=== PATIENT | female | born 1990 | race Caucasian/White ===

== ENCOUNTER 2017-01-06 09:12 | Emergency (ER) | payer OTHER ==
[~2017-01-06] VITALS: Ht 152.4 cm; Wt 54.0 kg
[2017-01-06 09:15] VITALS: Ht 152.4 cm; Wt 54.0 kg
[2017-01-06] MEDS ORDERED: IBUPROFEN 800 MG TAB PO ONE (10:00)
[2017-01-06] MEDS ORDERED: IBUP800T25 PO (11:16)
[2017-01-06 11:24] VITALS: BP 121/86; PULSE 74; RESP 14; TEMP 98.2
--- NOTE | 2017-01-06 17:18 | ERD ---
ER Documentation Chief Complaint Date/Time DATE: 01/06/17 TIME: 17:09 Chief Complaint Complains of left arm pain x 2 days HPI 26-year-old female complaining of left shoulder pain 2 days. Patient stated the pain was initially a dull ache yesterday morning, the pain has becoming increasingly worse. She sleeps on her left side. This morning upon awake the pain has become excruciating. She is having difficulty to move her left shoulder due to pain. Patient reports pain radiating down her arm when she tried to move her left shoulder and elbow. Denies any trauma. Patient stated that she does a lot of heavy lifting at work. ROS All systems reviewed and are negative except as per history of present illness. Medications Home Meds Active Scripts Ibuprofen* (Motrin*) 800 Mg Tab, 800 MG PO Q8 Y for PAIN AND OR ELEVATED TEMP, # 30 TAB Prov:JAIROKAYY Axel. SECURITY INTERN 01/06/17 Allergies Allergies: Coded Allergies: Latex, Natural Rubber (Verified Allergy, Intermediate, 01/06/17) PMhx/Soc History of Surgery: Yes (bilat hip/leg/foot ) Anesthesia Reaction: No Hx Neurological Disorder: No Hx Respiratory Disorders: No Hx Cardiac Disorders: No Hx Psychiatric Problems: No Hx Miscellaneous Medical Probl: No Hx Alcohol Use: No Hx Substance Use: No Hx Tobacco Use: Yes Smoking Status: Current every day smoker Physical Exam Vitals Vital Signs Date Time Temp Pulse Resp B/P Pulse Ox O2 Delivery O2 Flow Rate FiO2 01/06/17 11:24 98.2 74 14 121/86 98 Room Air 01/06/17 09:15 98.3 108 20 140/74 99 Physical Exam General: Well-developed, well-nourished, conscious and coherent, in no distress Skin: Warm and dry without rash, good texture and turgor Head: Normocephalic without evidence of trauma Eyes: Sclera and conjunctivae normal; pupils equal, round, and reactive to light; extraocular movements are intact Neck: Supple without meningismus or adenopathy. Carotids are equal. Trachea midline. No bruits or JVD Chest: Normal AP diameter. Good expansion without retractions. Nontender. Lungs are clear to auscultate bilaterally with good tidal volume Heart: Regular rate and rhythm. No murmur, rub, or gallops heard Extremities: Point tenderness at the anterior left shoulder, over the glenohumeral joint. Extremely limited range of motion. Decreased sales intern strength of the left. No clubbing, cyanosis, or edema. Peripheral pulses are intact. Sensation intact Neuro: Alert and oriented 4, GCS 15. Cranial nerves grossly intact. Motor and sensory exams nonfocal. Moves all extremities. Speech clear. Gait normal Results 24 hrs Current Medications Medications (Trade) Dose Ordered Sig/Joycelyn Route PRN Reason Start Time Stop Time Status Last Admin Dose Admin Ibuprofen (Motrin) 800 mg ONCE ONCE PO 01/06/17 10:00 01/06/17 10:01 DC 01/06/17 10:00 Procedures/MDM Well-appearing 26-year-old female presented ED with progressively worsening left shoulder pain. I suspect the pain is due to repetitive stress injury of this soft tissue, possible rotator cuff tears. I doubt fractures or dislocations of the left shoulder. The area of injury was immobilized with a shoulder sling. Patient was noted to be comfortable and neurovascularly intact both before and after the immobilization. I discussed with patient on x-ray imaging to actually rule out fractures or dislocations. Patient refused x-ray due to the cost constraints. Ibuprofen given to the patient in the ED for pain. Patient advised to follow- up with PCP for orthopedic referral. Patient appears well, stable for discharge and outpatient management. Medical decision making shared with patient and family. Education provided to patient and family. Patient and family expressed understanding of the plan. Medications on discharge: Ibuprofen. Follow-up: Primary care provider in 2-3 days or return to ED if worse. Departure Diagnosis: Primary Impression: Left shoulder pain Condition: Good Patient Instructions: Understanding Rotator Cuff Injuries Referrals: [facility] YOU HAVE RECEIVED A MEDICAL SCREENING EXAM AND THE RESULTS INDICATE THAT YOU DO NOT HAVE A CONDITION THAT REQUIRES URGENT TREATMENT IN THE EMERGENCY DEPARTMENT. FURTHER EVALUATION AND TREATMENT OF YOUR CONDITION CAN WAIT UNTIL YOU ARE SEEN IN YOUR DOCTORS OFFICE WITHIN THE NEXT 1-2 DAYS. IT IS YOUR RESPONSIBILITY TO MAKE AN APPOINTMENT FOR FOLOW-UP CARE. IF YOU HAVE A PRIMARY DOCTOR --you should call your primary doctor and schedule an appointment IF YOU DO NOT HAVE A PRIMARY DOCTOR YOU CAN CALL OUR PHYSICIAN REFERRAL HOTLINE AT IF YOU CAN NOT AFFORD TO SEE A PHYSICIAN YOU CAN CHOSE FROM THE FOLLOWING [facility] [id number] [facility] [address] [facility] [facility] [address] [facility]. [facility] [address] [facility]. [facility] [address] [facility]. [facility] [address] Additional Instructions: Call your primary care doctor TOMORROW for an appointment during the next 1 WEEK.Tell the legal secretary receptionist that you were referred from this facility.See the doctor sooner or return here if your condition worsens before your appointment time. KAYY GILL. JACQUELINE Jan 06, 2017 17:18
== END 2017-01-06 11:26 | disposition home or self-care (01) ==
LOC: FTE 09:12
DX: M25.512 Pain in left shoulder (principal); F17.210 Nicotine dependence, cigarettes, uncomplicated
CPT/HCPCS: 99283